=== PATIENT | female | born 1985 | race Caucasian/White ===

== ENCOUNTER 2017-01-01 09:22 | Inpatient (IN) | payer OTHER ==
[2017-01-01 09:59] VITALS: BMI 24.3
[2017-01-01] MEDS ORDERED: Sodium Citrate/Citric Acid 15 ml Sol PO ONE (09:59)
[2017-01-01] MEDS ORDERED: Lactated Ringer's 1,000 ML IV SCH (10:00)
[2017-01-01] MEDS ORDERED: Clindamycin 600mg/50ml D5W 50 ML IVPB ONE ×2 (10:02→10:57)
--- NOTE | 2017-01-01 10:38 | OBADHP ---
Datetime: 01/01/2017 10:17 IP Chief Complaint Other: Previuos section Admit Comment, IP Provider: 31 y.o. , LMP 04/02/2016, GRANT 01/08/17, EGA 39 weeks, previous C/S, c/o contractions, pain scale 5/10. (+) AFM; denies LOF, VB. care: Dr. 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 FOB tested negative. Also, (+) chlamydia, 04/2016; repeat cu ltrues 11/2016 negative. GBS negative P Ob: 2011, C/S, female 6lb 4 oz, [place], NRFHRT. 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 (+) chlamydia - as above. Pap - 04/2016 = HPV PMH: denies PSH: C/S; D_C Allergies: penicillin = rash No food allergies Meds: PNV - QD Soc Hx: denies tobacco, illicit drug or EtOH use. With FOB x 14 years. Works in an office setting; stopped work 2 weeks ago Fam H x; Mother alive 53 y.o. - HTN. Father alive 51 y.o. - M.S. No known fam h/o cancer Assessment: 31 yo P1021, 39 weeks, previous C/S with uterine contracitons. Category 1 tracing. Cli nically stable. Patient last at 2200 hours 12/31/16 Plan: 1) Admit 2) NPO 3) Continuous EFM 4) IVFs 5) Admission labs 6) Clindamycin, tower air traffic control specialist to O.R. 7) [facility] 8) Abdominal prep and shave 9) Notify anesthesia 10) Notify peds 11) Patient tower air traffic control specialist to O.R. - Dr. Julian is aware 4) Pelvic Type - PN: Adequate Extremities - PN: Normal Abdomen - PN: Normal Back - PN: Normal Breast - PN: Not Done Lungs - PN: Normal Heart - PN: Normal Thyroid - PN: Normal Neurologic - PN: Not Done HEENT - PN: Normal General - PN: Normal Presentation-Admit: Vertex FHR - Baseline A Provider: 130 Contraction Comments Provider: occsasional Comments, ACOG Physical Exam: Skin: warm, dry, intact HEENT: full ROM Lungs: CTA bilaterally Cardiac: RRR, normal S1, S2 Abdomen: Soft; gravid. Fundal height 36 cm. : no urethral meatus Extremities: no calf tenderness, cyanosis, or edema All other systems reviewed and are negative Gestation - Est Wks by US: 39.0 IP Hx Assessment: The History has been Reviewed and is Current Vital Signs Provider: Reviewed; Within Normal Limits IP Chief Complaint: Uterine contractions NICHD Variability Prov Fetus A: Moderate 6-25bpm NICHD Accel Fetus A IP Provider: [id number] FHR Category Provider Fetus A: Category I NICHD Decel Fetus A IP Provider: None Dilatation, Provider: 0 Effacement, Provider: 30 Station, Provider: -3 Genitourinary Exam: Normal DTRs - PN: Not Done IP Adm Impression: Term, intrauterine ; No Active Labor; Intact Membranes IP Admit Plan: Admit to unit; Initiate Section protocol
[2017-01-01 10:48] LABS: BASO % 0.3 % (0.0-2.0); EOS % 0.5 % (0.0-4.0); HEMATOCRIT 31.3 % (34.0-47.0); LYMPH # 1.9 K/uL (1.0-4.3); LYMPH % 18.3 % (20.0-40.0); MEAN CELL VOLUME 86.4 fL (81.0-99.0); MEAN CORPUSCULAR HEMOGLOBIN 28.8 pg (27.0-31.0); MEAN CORPUSCULAR HGB CONC 33.3 g/dL (33.0-37.0); MEAN PLATELET VOLUME 9.6 fL (7.2-11.7); MONO # 0.8 K/uL (0.0-0.8); MONO % 7.7 % (0.0-10.0); RED CELL DISTRIBUTION WIDTH 13.5 % (11.5-14.5); WHITE BLOOD COUNT 10.2 K/uL (4.8-10.8)
[2017-01-01 10:52] LABS: RBC URINE 1 /hpf (0-3); URINE BILIRUBIN NEGATIVE (NEGATIVE); URINE BLOOD NEGATIVE (NEGATIVE); URINE COLOR Yellow (YELLOW); URINE GLUCOSE (UA) NORMAL (Normal); URINE KETONE NEGATIVE (NEGATIVE); URINE LEUKOCYTE ESTERASE TRACE Leu/uL (Negative); URINE PROTEIN NEGATIVE (NEGATIVE); URINE UROBILINOGEN NORMAL mg/dL (0.2-1.0); WBC URINE 5 /hpf (0-5)
[2017-01-01 10:54] LABS: CHLORIDE 104 mmol/L (98-107); POTASSIUM 4.1 mmol/L (3.6-5.2); SODIUM 136 mmol/L (132-148)
[2017-01-01 10:56] LABS: GFR AFRICAN-AMERICAN > 60
[2017-01-01 10:57] LABS: ALB/GLOB RATIO 1.2 (1.0-2.1); ALKALINE PHOSPHATASE 118 U/L (38-126); ALT/SGPT 22 U/L (9-52); AST/SGOT 21 U/L (14-36); BILIRUBIN,TOTAL 0.6 mg/dL (0.2-1.3); BLOOD UREA NITROGEN 10 mg/dL (7-17); CARBON DIOXIDE 19 mmol/L (22-30); GLUCOSE,RANDOM 71 mg/dL (65-105); TOTAL PROTEIN 6.9 g/dL (6.3-8.3)
[2017-01-01] MEDS ORDERED: Sodium Citrate/Citric Acid 15 ml Sol ONE (10:57)
[2017-01-01] MEDS ORDERED: Oxytocin 20 units in LR 2,000 ML IV ONE (10:57)
[2017-01-01 10:58] LABS: CALCIUM 8.2 mg/dl (8.6-10.4)
[2017-01-01] MEDS ORDERED: Morphine 1 mg/ml preservative-free Inj(Duramorph) ONE (11:10)
[2017-01-01] MEDS ORDERED: ePHEDrine 50 mg/ml Inj ONE (11:12)
[2017-01-01] MEDS ORDERED: Lidocaine 2% MPF (5 ml) Inj ONE (12:22)
[2017-01-01] MEDS ORDERED: Oxytocin 10 Units/ml Inj ONE (12:36)
[2017-01-01] MEDS ORDERED: DiphenhydrAMINE 50 mg/ml Inj IVP PRN (13:23)
[2017-01-01] MEDS: Simethicone 80 mg Chewtab PO SCH ×2 (18:00→22:26)
[2017-01-02 06:02] LABS: HEMATOCRIT 26.1 % (34.0-47.0); MEAN CELL VOLUME 86.3 fL (81.0-99.0); MEAN CORPUSCULAR HEMOGLOBIN 28.7 pg (27.0-31.0); MEAN CORPUSCULAR HGB CONC 33.2 g/dL (33.0-37.0); RED CELL DISTRIBUTION WIDTH 13.6 % (11.5-14.5); WHITE BLOOD COUNT 14.2 K/uL (4.8-10.8)
[2017-01-02 08:12] VITALS: RESP 18
[2017-01-02] MEDS: Simethicone 80 mg Chewtab PO SCH ×5 (09:05→22:00)
[2017-01-02] MEDS: Hydrocodone/Acetaminophen 5 mg /300 mg Tab PO PRN ×3 (12:29→23:27)
[2017-01-03 08:06] LABS: BASO % 0.3 % (0.0-2.0); EOS % 0.2 % (0.0-4.0); HEMATOCRIT 25.1 % (34.0-47.0); LYMPH # 1.5 K/uL (1.0-4.3); LYMPH % 14.2 % (20.0-40.0); MEAN CELL VOLUME 87.3 fL (81.0-99.0); MEAN CORPUSCULAR HEMOGLOBIN 28.7 pg (27.0-31.0); MEAN CORPUSCULAR HGB CONC 32.9 g/dL (33.0-37.0); MEAN PLATELET VOLUME 8.8 fL (7.2-11.7); MONO # 0.8 K/uL (0.0-0.8); MONO % 7.1 % (0.0-10.0); RED CELL DISTRIBUTION WIDTH 13.7 % (11.5-14.5); WHITE BLOOD COUNT 10.7 K/uL (4.8-10.8)
[2017-01-03] MEDS: Hydrocodone/Acetaminophen 5 mg /300 mg Tab PO PRN ×3 (09:24→21:25)
[2017-01-03] MEDS: Simethicone 80 mg Chewtab PO SCH ×4 (09:24→21:21)
[2017-01-03 16:05] VITALS: O2SAT 98
--- NOTE | 2017-01-03 16:11 | OBPPN ---
Datetime: 01/03/2017 16:06 PP Breasts Prov: Normal PP Heart Prov: Normal PP Lungs Prov: Normal PP Abdomen/Uterus Prov: Normal PP Lochia Prov: Normal PP Vulva/Perineum Prov: Normal PP CVA Tenderness Prov: Normal PP Extremities Prov: Normal PP C/S Incision Prov: Normal PP Progress Prov: Normal PP Impression Prov: Normal progression PP Plan Prov: Continue present management PP Progress Note Prov: Home in AM if stable IP PP Procedures: None
--- NOTE | 2017-01-03 16:13 | OBDCSUM ---
Datetime: 01/03/2017 16:12 Discharge Time: 01/04/2017 10:11 Datetime: 01/03/2017 16:09 Discharged to, Provider: Home Follow up at, Provider: Dr. Julian Disch Instr Activity: Normal activity; May be up to bathroom; May be up for meals; May Shower Disch Instr Diet: Regular Discharge Instructions, Provider: Routine instructions given Discharge Diagnosis, Provider: Term Delivered Follow up in weeks, Provider: 2 weeks Disch Referrals: None Contraception discussed, Prov: No Disch Activity Restrictions: No exercising; No lifting; Minimize walking; Minimize stair-climbing; N o sexual activity; Nothing in vagina - [place], tampons, douche Contraception after Delivery: Not Planning to Use
--- NOTE | 2017-01-03 16:17 | OBDCSUM ---
Datetime: 01/03/2017 16:12 Discharged to, Provider: Home Follow up at, Provider: Disch Instr Activity: Normal activity Disch Instr Diet: Regular Discharge Instructions, Provider: Routine instructions given Discharge Diagnosis, Provider: Term Delivered Discharge Time: 01/04/2017 10:11 Follow up in weeks, Provider: 2 weeks Disch Referrals: None Contraception discussed, Prov: Yes Disch Activity Restrictions: No exercising; No lifting; No driving; Minimize walking; Minimize stair -climbing; No sexual activity; Nothing in vagina - [place], tampons, douche Datetime: 01/03/2017 16:09 Discharged to, Provider: Home Follow up at, Provider: Dr. Eliel Shaw Instr Activity: Normal activity; May be up to bathroom; May be up for meals; May Shower Disch Instr Diet: Regular Discharge Instructions, Provider: Routine instructions given Discharge Diagnosis, Provider: Term Delivered Follow up in weeks, Provider: 2 weeks Disch Referrals: None Contraception discussed, Prov: No Disch Activity Restrictions: No exercising; No lifting; Minimize walking; Minimize stair-climbing; N o sexual activity; Nothing in vagina - [place], tampons, douche Contraception after Delivery: Not Planning to Use
[2017-01-04 08:45] VITALS: BP 106/75; PULSE 94; TEMP 97.8
[2017-01-04] MEDS: Simethicone 80 mg Chewtab PO SCH (09:04)
[2017-01-04] MEDS: Hydrocodone/Acetaminophen 5 mg /300 mg Tab PO PRN (09:04)
--- NOTE | 2017-01-08 08:30 | OP ---
PROCEDURE DATE: 01/01/2017 NATURE OF OPERATION: Repeat section. ATTENDING SURGEON: Dr. Julian OPERATING SURGEON: Dr. Julian YOUTH NUTRITIONAL MONITOR: Dr. eMlo PNEUMATIC SYSTEMS OPERATOR: Dr. Lambert TYPE OF ANESTHESIA: Spinal. PREOPERATIVE DIAGNOSES: A 39-40 weeks , previous section. POSTOPERATIVE DIAGNOSES: A 39-40 weeks , previous section with a live female, 6 po unds 11 ounces, 9 and 9, vertex, and anemia. PROCEDURE: The patient was placed in supine position after the spinal anesthesia. The abdomen was p repped and draped for a Pfannenstiel incision. A Pfannenstiel incision was made between the symphysi s pubis and the umbilicus and was carried down to rectus fascia. The fascia was cleaned and incised the length of the incision. The recti were retracted laterally. The transversalis fascia identified and mobilized superiorly. The peritoneum was then incised the length of the incision. The vesicout erine fold of the visceral peritoneum was identified, incised transversely between the round ligament s. The bladder flap was developed, mobilized inferiorly by blunt dissection. A transverse incision was made into the anterior wall of the lower uterine segment and extended laterally towards the round ligament. Membranes were incised and the amniotic fluid was clear. The patient was delivered from the OT position of a living female infant in good condition at exactly 12:29 p.m. on 01/01/2017, 9 and 9, presenting part was floating. The placenta was on the posterior wall near the fundus. Mem brane and placenta were completely removed manually. The uterus was closed in 2 layers with continuo us suture of chromic #1 gut; first layer including myometrium, second layer imbricating the myometriu m. The bladder flap was reattached with continuous suture of #2-0 catgut on an atraumatic need le. The uterus was well contracted. Tubes and ovaries were normal. Hemostasis was satisfactory. L ap and sponge count were reported as correct. The abdomen was closed in layers, peritoneum continuou s suture of chromic #0 catgut on an atraumatic needle, fascia running interlocking sutures of 0 Vicry l, subcutaneous tissue was closed with a #2-0 plain catgut and skin was closed with nohemi. The pat ient tolerated the procedure well and was sent to the recovery room in satisfactory condition. Sudhakar Julian MD cc: 38 TT: 01/08/2017 08:29:03 en
== END 2017-01-04 13:30 | disposition home or self-care (01) | DRG 766 ==
LOC: C.EROB 09:22 → UNDOADMIN 09:51 → C.4D 09:51 → C.4M 16:40
PROVIDERS: ADMIT Obstetrics & Gynecology; ATTEND Obstetrics & Gynecology
PROC: 10D00Z1 Extraction of Products of Conception, Low, Open Approach (ICD-10-PCS; principal; 2017-01-01)
DX: O34.211 Maternal care for low transverse scar from previous cesarean delivery (principal); D64.9 Anemia, unspecified; O90.81 Anemia of the puerperium; Z3A.39 39 weeks gestation of pregnancy; Z23 Encounter for immunization; Z37.0 Single live birth